=== PATIENT | male | born 1965 | race Two or more races ===

== ENCOUNTER 2018-07-07 13:03 | Emergency (ER) | payer OTHER ==
--- NOTE | 2018-07-07 14:42 | EDPHY ---
H & P Time Seen by Provider: 07/07/18 13:18 HPI/ROS: 3 days prior to arrival while working at [employer] this patient was working a with a piece of metal duct material when he sustained laceration from that material to his left index finger tip with moderate bleeding that slowed with direct pressure. He subsequently encountered a change of housing another life events the precluded a timely follow-up and now presents 3 days post injury reporting that there is a flap of skin to the tip of his index finger. He reports mild to moderate pain without other complaints. ROS: Constitutional: No fevers Integumentary: No discharge from the wound Musculoskeletal: No bony pain to the affected finger Neuro: No proximal numbness or tingling to the affected finger. 5 point review of symptoms is performed and otherwise negative with exception of pertinent positives and negatives listed in HPI and ROS Past Medical/Surgical History: Immunizations are up today Smoking Status: Current some day smoker Physical Exam: Physical Exam Vital signs are normal. General: No acute distress Cardiac: Brisk capillary refill is intact throughout the affected digit Skin: No rash or pallor. Musculoskeletal: Patient has a trapdoor type flap/skin avulsion to the distal tip of the index finger and there is is small skin bridge keeping an attach but the skin flap is nonviable. There is no active bleeding. There is no associated erythema or discharge. There is no bone exposure. Subcutaneous tissues evident at the finger tip that is less than 5 mm in size. Neuro: Alert and oriented x3 with no sensorimotor deficits to the affected finger Constitutional: Initial Vital Signs Temperature (C) 36.5 C 07/07/18 13:13 Heart Rate 116 H 07/07/18 13:13 Respiratory Rate 16 07/07/18 13:13 Blood Pressure 142/95 H 07/07/18 13:13 O2 Sat (%) 96 07/07/18 13:13 O2 Delivery Mode Room Air Allergies/Adverse Reactions: No Known Allergies Allergy (Verified 07/07/18 14:10) Home Medications: Medication Instructions Recorded Ibuprofen [Motrin (*)] 600 mg PO Q6 PRN #30 tab 07/07/18 Jardiance 07/07/18 Lisinopril 07/07/18 Phentermine HCl 07/07/18 MDM/Departure - MDM Procedures: Digital block: After verbal consent, using a 50 50 mix of 0.5% Marcaine 2% plain lidocaine, 27 gauge needle, chlorhexidine scrub under sterile conditions- 3 injections were administered to the base of the affected finger, 8 mL with good effect. Patient tolerated this well. There were no complications. Wound debridement: Patient's finger to prescribed by our tech with baby shampoo and saline. Under sterile conditions I used tissue scissors to debride the nonviable skin flap. Patient tolerated this well without complications. Dressing was applied by our tech. I counseled regarding wound care ED Course/Re-evaluation: Finger tip skin avulsion without bony injury or other red flag findings. Although it is a delayed presentation 3 days after the wound find evidence of acute infection. Patient will have limited use of hand and then follow up with work comp clinic. He understands need to return emergency department she developed redness, discharge or other concerns - Depart Disposition: Home, Routine, Self-Care Clinical Impression: Avulsion of skin of finger Qualifiers: Encounter type: initial encounter Qualified Code(s): S61.209A - Unspecified open wound of unspecified finger without damage to nail, initial encounter Clinical Impression: (Ruled Out): Skin avulsion Condition: Good Instructions: Skin Avulsion (ED) Additional Instructions: Diagnosis: Skin avulsion of index finger Plan: Keep the current dressing on place clean and dry for the next 2 days. Then soak it with warm soapy water and gently remove it. Thereafter, clean each day with warm soapy water apply Band-Aid. Limited use at work and till improved. Ibuprofen and/or Tylenol for pain if needed. Call the work comp clinic affiliated with [facility] to arrange follow-up appointment for sometime within the next 3-5 days for recheck. Return emergency department if he develops redness, discharge or other concerns for infection. Prescriptions: Ibuprofen [Motrin (*)] 600 mg PO Q6 PRN #30 tab PRN Reason: Pain Referrals: NONE *PRIMARY CARE P,. [Primary Care Provider] - As per Instructions
[2018-07-07 15:24] VITALS: BP 138/90
== END 2018-07-07 14:50 | disposition home or self-care (01) ==
LOC: CED 13:03
DX: S61.209A Unspecified open wound of unspecified finger without damage to nail, initial encounter (principal); W26.8XXA Contact with other sharp object(s), not elsewhere classified, initial encounter; Y99.0 Civilian activity done for income or pay
CPT/HCPCS: 99282-ER